=== PATIENT | female | born 1950 | race Caucasian/White ===

== ENCOUNTER 2017-02-15 12:06 | Outpatient (CLI) | payer BC ==
[~2017-02-15] VITALS: Ht 154.9 cm; Wt 56.8 kg
--- NOTE | ~2017-02-15 | HEMODYNAMI ---
PATIENT:ONEYDA GATES MEDICAL RECORD: [id number] : 54 LOCATION:D.CAT ADMISSION DATE: 02/15/17 Generatedon:02/15/201715:51 Patient name: ONEYDA GATES Patient #: [id number] SSN: : 1950 Date of study: 02/15/2017 Page: Of Hemodynamic Procedure Report Patient Data Patient Demographics Procedure consent was obtained First Name: ONEYDA Gender: Female Last Name: YAJAIRA : 1950 [facility] Initial: GUILLE Age: 66 year(s) Patient #: [id number] Race: Additional ID: [id number] Contact details Address: [place] State: [place] City: [place] Zip code: [address] Past Medical History Allergies Allergen Reaction Date Comments Reported Other allergy 06/29/2015 Sulfa Codeine 02/15/2017 Other allergy 02/15/2017 hydrocodone, linzess, zanaflex, methocaibomol Admission Admission Data Admission Date: 02/15/2017 Admission Time: 12:06 Admit Source: Other Lab Results Lab Result Date: 02/15/2017 Lab Result Time: 0:00 Biochemistry Name Units Result Min Max BUN mg/dl 9 --(*---)-- 7 18 Creatinine mg/dl 0.9 --(-*--)-- 0.6 1.3 Potassium mmol/l 3 *-(----)-- 3.5 5.1 CBC Name Units Result Min Max Hematocrit % 38.3 *-(----)-- 42 54 Hemoglobin g/dl 13.5 --(*---)-- 13.5 17.5 Procedure Procedure Types Cath Procedure Diagnostic Procedure [facility] w/Coronaries PCI Procedure Coronary Stent Initial Miscellaneous Procedures Moderate Sedation up to 30 minutes Procedure Description Procedure Date Procedure Date: 02/15/2017 Procedure Start Time: 15:19 Procedure End Time: 15:44 Procedure Staff Name Function Ronaldo Brooks MD Performing Physician Fabrice Hansen RT Scrub Camille Walker RN Nurse Sp Masters RT Monitor Procedure Data Cath Procedure Fluoroscopy Diagnostic fluoroscopy Total fluoroscopy Time: 3.3 time: 3.3 min min Diagnostic fluoroscopy Total fluoroscopy dose: 330 dose: 330 mGy mGy Contrast Material Contrast Material Type Amount (ml) Isovue 300 88 Entry Location Entry Primary Successful Side Size Upsize Upsize Entry Closure Succes sful Closure Location (Fr) 1 (Fr) 2 (Fr) Remarks Device Remarks Femoral Right 5 Fr 6 Fr Exoseal artery Short Diagnostic catheters Device Type Used For End Catheter Placement Cordis 5Fr JL 4.0 Left Coronary Catheter (MP) Angiography Cordis 5Fr 3DRC Catheter Right Coronary (MP) Angiography Cordis 5Fr Pigtail LV Angiography Catheter (MP) Diagnostic Infinity 6Fr JR 4.0 catheter Procedure Complications No complications Procedure Medications Medication Administration Route Dosage Oxygen NC 2 l/min Heparin Flush Bag added to field 2 bags (1000units/500ml NS) Lidocaine 2% added to field 20 Versed I.V. 1 mg Fentanyl I.V. 50 mcg Versed I.V. 1 mg Fentanyl I.V. 50 mcg Versed I.V. 1 mg Fentanyl I.V. 50 mcg Versed I.V. 1 mg Fentanyl I.V. 50 mcg Fentanyl I.V. 50 mcg Versed I.V. 1 mg Heparin Bolus I.V. 4000 units Hemodynamics Rest Heart Rate: 59 (bpm) Pressure Samples Time Site Value (mmHg) Purpose Heart Use Rate(bpm) 15:27 LV 144/14,27 EDP 59 Gradients Valve Time Site Site Mean SEP/DFP Peak To Heart Use 1 2 (mmHg) (sec/min) Peak Rate (mmHg) (bpm) Aortic 15:27 LV AO 59 Snapshots Pre Cath Intra NCS Post Cath Vital Signs Time Heart Resp SPO2 etCO2 RY3izfs NIBP (mmHg) Rhythm Pain Sedation Rate (ipm) (%) (mmHg) (mmHg) Status Level (bpm) 15:06:56 63 16 99 0 0 No Cuff NSR 0 (11) 10(A) , No pain 15:10:27 52 16 99 0 0 155/77(111) NSR 0 (11) 10(A) , No pain 15:14:37 56 14 100 0 0 140/72(100) NSR 0 (11) 10(A) , No pain 15:19:34 51 14 99 0 0 130/75(96) NSR 0 (11) 10(A) , No pain 15:23:44 59 16 98 0 0 131/79(91) NSR 0 (11) 10(A) , No pain 15:27:58 57 15 99 0 0 127/73(124) NSR 0 (11) 9(A) , No pain 15:32:10 64 19 100 0 0 125/74(98) NSR 0 (11) 9(A) , No pain 15:37:09 67 19 100 0 0 Measuring NSR 0 (11) 9(A) , No pain 15:37:21 65 16 100 0 0 132/74(95) NSR 0 (11) 10(A) , No pain 15:41:35 63 17 100 0 0 128/72(91) NSR 0 (11) 10(A) , No pain Medications Time Medication Route Dose Verified Delivered Reason Notes Effectiveness by by 15:06:24 Oxygen NC 2 Ronaldo Camille Per physician l/min St. Baljinder Walker RN, MD 15:06:31 Heparin Flush added 2 Ronaldo Ronaldo used for Bag to bags [facility] procedure (1000units/500ml field MD HEIN NS) 15:06:40 Lidocaine 2% added 20ml Ronaldo Ronaldo used for to vial [facility] procedure field MD HEIN 15:14:04 Versed I.V. 1 mg Ronaldo Camille for sedation St. Baljinder Walker RN, MD 15:14:17 Fentanyl I.V. 50 Ronaldo Camille for sedation mcg [facility] Baljinder Walker RN, MD 15:16:23 Versed I.V. 1 mg Ronaldo Camille for sedation St. Baljinder Walker RN, MD 15:16:33 Fentanyl I.V. 50 Ronaldo Camille for sedation mcg [facility]. Baljinder Walker RN, MD 15:18:42 Versed I.V. 1 mg Ronaldo Camille for sedation St. Baljinder Walker RN, MD 15:18:47 Fentanyl I.V. 50 Ronaldo Camille for sedation mcg [facility]. Baljinder Walker RN, MD 15:20:25 Fentanyl I.V. 50 Ronaldo Camille for sedation mcg [facility]. Baljinder Walker RN, MD 15:20:35 Versed I.V. 1 mg Ronaldo Camille for sedation St. Baljinder Walker RN, MD 15:22:27 Fentanyl I.V. 50 Ronaldo Obrien for sedation mcg [facility]. Baljinder Walker RN, MD 15:22:30 Versed I.V. 1 mg Ronaldo Robertoca for sedation St. Baljinder Walker RN, MD 15:30:08 Heparin Bolus I.V. 4000 Ronaldo Obrien for dose units St. Baljinder Walker RN anticoagulation verified MD with dr vogel Procedure Log Time Note 14:38:59 Informed consent obtained and on chart 14:39:05 Admit Source: Other 14:39:24 Diagnostic Cath status Elective 14:39:29 Camille Walker RN sent for patient. Start room use. 14:39:31 Time tracking: Regular hours 14:39:34 Plan of Care:Hemodynamics will remain stable., Cardiac rhythm will remain stable., Comfort level will be maintained., Respiratory function will remain adequate., Patient/ family verbilizes understanding of procedure., Procedure tolerated without complication., Recovers from procedure without complications.. 14:40:10 H&P Date Dictated: 02/13/2017 Within 30 days and on chart., H&P Addendum completed by physician on day of procedure. (MUST COMPLETE FOR ALL OUTPATIENTS). 14:49:38 Lab Result : Potassium 3 mmol/l 14:49:38 Lab Result : Creatinine 0.9 mg/dl 14:49:38 Lab Result : BUN 9 mg/dl 14:49:38 Lab Result : Hematocrit 38.3 % 14:49:38 Lab Result : Hemoglobin 13.5 g/dl 14:49:41 Lab results completed and on chart. 14:58:52 Patient received from Pre/Post Procedure Room to CCL 1 Alert and oriented. Tansferred to table in Supine position. 14:58:53 Warm blankets applied, and ruma hugger turned on for patient comfort. 14:58:53 Correct patient and procedure confirmed by team. 14:58:54 ECG and BP/O2 sat monitors applied to patient. 14:58:58 Pre-procedure instructions explained to patient. 14:58:58 Pre-op teaching completed and patient verbalized understanding. 14:59:00 Family in waiting room. 14:59:01 Patient NPO since Midnight. 15:06:07 Vital chart was started 15:06:24 Oxygen 2 l/min NC was administered by Camille Walker RN; Per physician; 15:06:31 Heparin Flush Bag (1000units/500ml NS) 2 bags added to field was administered by Ronaldo Brooks MD; used for procedure; 15:06:40 Lidocaine 2% 20ml vial added to field was administered by Ronaldo Brooks MD; used for procedure; 15:12:10 Patient allergic to Codeine 15:12:55 Patient allergic to Other allergyhydrocodone, linzess, zanaflex, methocaibomol 15:12:58 Is the patient allergic to Iodine/contrast media? No. 15:13:00 Was the patient premedicated? No 15:13:04 Is patient on blood thinner?Yes 15:13:07 ACC The patient was administered the following blood thiners within the last 24 hours: ACCPlavix 15:13:09 Patient diabetic? No. 15:13:10 ----Pre-sedation anethsthesia assessment.---- 15:13:12 Previous problem with sedation/anesthesia? No ? 15:13:14 Snore? Yes 15:13:17 Sleep apnea? No 15:13:18 Deviated septum? No 15:13:20 Opens mouth fully? Yes 15:13:21 Sticks out tongue? Yes 15:13:23 Airway obstruction? No ? 15:13:25 Dentures? No ? 15:13:28 Pre procedure: right dorsailis pedis pulse 1+ Palpable, but thready & weak; easily obliterated 15:13:31 Patient pain scale 0/10 ?. 15:13:45 IV patent on arrival in right antecubital with 0.9% NaCl at 10ml/hr. 15:13:50 Right groin area was prepped with chlora-prep and draped in sterile fashion 15:13:50 Alarms reviewed by RAlena N. 15:13:51 Sharps counted by scrub and verified by R.N. 15:13:52 --------ALL STOP TIME OUT------ 15:13:52 Final Timeout: patient, procedure, and site verified with staff and physician. All members of the team are in agreement. 15:13:55 Right groin site verified by team. 15:13:58 Physical assessment completed. ASA score P 2 - A patient with mild systemic disease as per Ronaldo Brooks MD. 15:14:01 Sedation plan: IV Moderate Sedation Versed, Fentanyl 15:14:04 Versed 1 mg I.V. was administered by Camille Walker RN; for sedation; 15:14:08 Use device set Femoral Dx 15:14:09 Acist Syringe opened to sterile field. 15:14:09 Bag Decanter opened to sterile field. 15:14:10 Medline Cath Pack opened to sterile field. 15:14:10 Terumo 5Fr Engelhard Sheath opened to sterile field. 15:14:10 St Bassem 260cm J .035 wire opened to sterile field. 15:14:11 Acist Hand Control opened to sterile field. 15:14:12 Acist Manifold opened to sterile field. 15:14:12 Diagnostic Infinity 5Fr Multipack catheter opened to sterile field. 15:14:13 Tegaderm 4 x 4 opened to sterile field. 15:14:17 Fentanyl 50 mcg I.V. was administered by Camille Walker RN; for sedation; 15:16:23 Versed 1 mg I.V. was administered by Camille Walker RN; for sedation; 15:16:33 Fentanyl 50 mcg I.V. was administered by Camille Walker RN; for sedation; 15:18:42 Versed 1 mg I.V. was administered by Camille Walker RN; for sedation; 15:18:47 Fentanyl 50 mcg I.V. was administered by Camille Walker RN; for sedation; 15:19:35 Zero performed for pressure channel P1 15:19:47 Procedure started. 15:19:47 Full Disclosure recording started 15:19:58 Local anesthetic to right femoral artery with Lidocaine 2% by Ronaldo Brooks MD.INITIAL ACCESS ONLY 15:20:05 A 5 Fr sheath was inserted into the Right Femoral artery 15:20:13 A Cordis 5Fr JL 4.0 Catheter () was advanced over the wire and used for Left Coronary Angiography. 15:20:17 Zero performed for pressure channel P1 15:20:25 Fentanyl 50 mcg I.V. was administered by Camille Walker RN; for sedation; 15:20:35 Versed 1 mg I.V. was administered by Camille Walker RN; for sedation; 15::34 LCA angiography performed. 15:: Fentanyl 50 mcg I.V. was administered by Camille Walker RN; for sedation; 15:: Versed 1 mg I.V. was administered by Camille Walker RN; for sedation; 15:24: Catheter removed. 15:24:15 A Cordis 5Fr 3DRC Catheter (MP) was advanced over the wire and used for Right Coronary Angiography. 15:: RCA angiography performed. 15:: Catheter removed. 15:: A Cordis 5Fr Pigtail Catheter (MP) was advanced over the wire and used for LV Angiography. 15:26:14 LV angiography performed. 15::40 LV gram done using ESTRADA 15:: LV hemodynamics recorded. 15:: EF : 55 % 15::42 Catheter removed. 15:28:26 Sheath upsized to a 6 Fr Short. 15:29:08 Sotelo Isaban 300cm 0.014 guide wire opened to sterile field. 15:29:08 i.Sec BasixCompak Inflation Kit opened to sterile field. 15:29:08 TerumPolantis 6Fr Engelhard Sheath opened to sterile field. 15:29:21 A Diagnostic Infinity 6Fr JR 4.0 catheter was advanced over the wire and used for . 15:30:08 Heparin Bolus 4000 units I.V. was administered by Camille Walker RN; for anticoagulation; dose verified with dr vogel 15:30:09 ACC PCI Site: mRCA has 80% stenosis. 15:30:12 ACC Pre-intervention MAY Flow is 3. 15:30:18 6 Fr JR 4 guide catheter was inserted over the wire 15:31:48 COUGAR wire advanced. 15:34:52 Inflation Number: 1 A SolarNOWtronic Integrity 3.0 X 12 stent was prepped and advanced across the Mid RCA. The stent was deployed at 14 FRANKY for 0:38 (min:sec). 15:35:12 Stent catheter was removed intact over wire. 15:35:12 Wire removed. 15:35:13 Guide catheter removed. 15:35:16 ACC Post-intervention MAY Flow is 3. 15:35:21 Contrast amount:Isovue 300 88ml. 15:35:29 Sheath removed intact; hemostasis achieved with Exoseal to the Right Femoral artery. 15:35:35 Procedure ended.(Physican Out) 15:36:26 Cordis 6Fr Exoseal opened to sterile field. 15:43:11 Fluoroscopy time 03.30 minutes. 15:43:14 Fluoroscopy dose: 330 mGy 15:43:14 Flurop Dose total: 330 15:43:16 Sharps counted by scrub and verified by R.N. 15:43:16 Insertion/operative site no bleeding no hematoma. 15:43:19 Post-op/insertion site Right Femoral artery dressed using a 4 x 4 and Tegaderm. 15:43:22 Post right femoral artery:stable 15:43:23 Post Procedure Pulses reassessed and unchanged 15:43:26 Post procedure rhythm: sinus rhythm 15:43:28 Post procedure instruction explained to patient.Patient verbalizes understanding. 15:43:55 Procedure type changed to Cath procedure, Diagnostic procedure, LHC, LHC w/Coronaries, PCI procedure, Coronary Stent Initial, Miscellaneous Procedures, Moderate Sedation up to 30 minutes 15:44:10 Procedure and supply charges have been captured, reviewed, submitted and are correct. 15:44:14 Procedure Complication : No complications 15:44:17 Vital chart was stopped 15:44:17 See physician's report for complete and final results. 15:44:24 Report given to Pre/Post Procedure Room. 15:44:29 Patient transfered to Pre/Post Procedure Room with Stretcher. 15:44:31 Procedure ended. 15:44:31 Full Disclosure recording stopped 15:44:34 End room use (Document Last) Intervention Summary Intervention Notes Time ActionType Lesion and Equipment Action# Pressure Duration Attributes Used 15:34:52 Place stent Mid RCA Medtronic 1 14 00:39 Integrity 3.0 X 12 stent Device Usage Item Name Manufacture Quantity Catalog Hospital Part Current Minimal Lot# / Number Charge Number Stock Stock Serial# Code Acist Acist 1 76180 512810 850647 161563 20 Syringe Medical Systems Inc Bag Microtek 1 2002S 550431 04115 165345 5 DecSuros Surgical [employer] Inc. Medline Cardinal 1 [id number] 440505 01989 859705 5 Cath Pack Health Terumo 5Fr Terumo 1 VLC349 859121 250514 118971 [address] Bas[address] St Bassem 1 933876 702944 655175 427602 30 260cm J .035 wire Acist Hand Acist 1 45158 188251 454091 587929 5 Control Medical Systems Inc Acist Acist 1 33983 104541 200466 659678 5 Manifold Medical Systems Inc Diagnostic Cardinal 1 [id number] 571019 75841 671679 30 Infinity Health 5Fr Multipack catheter Tegaderm 4 3M 1 1626W 342192 884955 105911 5 x 4 Cordis 5Fr Cardinal 1 038878 5 JL 4.0 Health Catheter (MP) Cordis 5Fr Cardinal 1 608603 5 3DRC Health Catheter (MP) Cordis 5Fr Cardinal 1 072032 5 Pigtail Health Catheter (MP) Sotelo Sotelo 1 [id number] 580422 307129 237084 1 Isaban Vascular 300cm 0.014 guide wire Merit Merit 1 RE3138 262510 805219 149551 15 Incentive Logic Medical Inflation Kit Terumo 6Fr Terumo 1 MSG279 632160 519901 314619 40 Engelhard Sheath Diagnostic Cardinal 1 [id number] 576496 587589 2434782 5 Infinity Health 6Fr JR 4.0 catheter Medtronic Medtronic 1 [id number] 484658 271657 8 [id number] Integrity 3.0 X 12 stent Cordis 6Fr Cardinal 1 EX600 496092 366109 978795 10 [facility] BioAnalytical Systems Signature Audit [place] Stage Time Signature Unsigned Intra-Procedure 02/15/2017 Sp Masters 3:51:32 PM RT(R) Signatures Monitor : Sp Masters RT Signature : Date : Time : [facility] [address] [place] [address]
[~2017-02-15 12:06] MED LIST: AMBIEN10 MG PO; ASPIRIN325 MG PO; FERRETTS324 MG PO; IBUPROFEN800 MG; IBUPROFEN800 MG PO; K-DUR20 MEQ PO; LEVOTHYROXINE75 MCG PO; LOVAZA1 G PO; NITROMIST8.5 GM SL; OXYCODONE HCL5 MG PO; OXYCONTIN15 MG PO; PHENERGAN25 M1 PO; PLAVIX75 MG PO; PROTONIX40 MG PO; ROXICODONE15 MG; SOMA350 MG PO; SYNTHROID100 MCG; SYNTHROID50 MCG PO; VALIUM10 MG PO
[2017-02-15] MEDS ORDERED: MOVANTIK25 MG PO (13:02)
[2017-02-15] MEDS ORDERED: CYCLOBENZAPRINE10 MG PO (13:02)
[2017-02-15] MEDS ORDERED: NASONEX NASAL S17 GM NS (13:03)
[2017-02-15 13:10] VITALS: BP 110/60; Ht 154.9 cm; Wt 56.8 kg
[2017-02-15 13:20] LABS: BASOPHILS 0.3 % (0-2); EOSINOPHILS 1.6 % (0-7); HEMATOCRIT 38.3 % (36.0-48.0); HEMOGLOBIN 13.5 g/dL (12-16); LYMPHOCYTES 38.5 % (15-50); MCH 30.3 pg (26.0-34.0); MCHC 35.2 g/dL (31.0-37.0); MCV 86.1 fL (80.0-100.0); MEAN PLATELET VOLUME 9.7 fL (7.4-10.4); MONOCYTES 4.8 % (2-11); NEUTROPHILS 54.8 % (40-80); PLATELET COUNT 170 10x3/uL (130-400); RBC 4.45 10x6/uL (4.00-5.40); RDW 12.7 % (11.5-14.5); WBC 3.1 10x3/uL (4.8-10.8)
[2017-02-15 13:44] LABS: ANION GAP 11.9 mmol/L (8-16); CALCIUM 9.2 mg/dL (8.5-10.1); CARBON DIOXIDE 27.1 mmol/L (21.0-32.0); CREATININE - SERUM 0.9 mg/dL (0.6-1.3)
--- NOTE | 2017-02-15 16:15 | NUR ---
RIGHT GROIN WITH FEMSTOP IN PLACE, NO BLEEDING NOTED. FAMILY AT SIDE
--- NOTE | 2017-02-15 16:45 | NUR ---
NO CHANGES AT THIS TIME
--- NOTE | 2017-02-15 19:45 | NUR ---
IV D'C WITH CATH TIP INTACT, WRITTEN AND VERBAL INSTRUCTIONS GIVEN TO PT AND , VERBAL UNDERSTANDING NOTED. DENIES FURTHUR NEEDS. D'C HOME WITH
--- NOTE | 2017-02-16 12:52 | OP ---
PATIENT NAME: ONEYDA GATES MEDICAL RECORD: [id number] :54 LOCATION:D.CAT ADMISSION DATE: SURGEON: ANYI LIU MD DATE OF OPERATION: 02/15/2017 PROCEDURES: Left heart catheterization, selective coronary angiography, right femoral approach. CATHETERS: A 5-Moldovan sheath, 5/4 left and right Andre, 5/4 pig. The procedure was well tolerated and the patient returned to the schaefer. Sheath removed. ExoSeal device was placed. FINDINGS: Left ventriculography in 30-degree ESTRADA view: Normal wall motion, normal systolic function. CORONARY ANATOMY: Left main: Left main is free of disease. LAD: LAD in the area of previous stenting is widely patent. There is no evidence of restenosis. No progression of [place] disease. CIRCUMFLEX: Circumflex is free of disease. RIGHT CORONARY ARTERY: Despite ____ stenting, this has one area of discrete stenosis of about 80%-90%. IMPRESSION AND PLAN: Intervention of this vessel momentarily. DESCRIPTION OF THE PROCEDURE: A 5-Moldovan sheath was changed for a 6-Moldovan sheath. A JR4 guiding catheter provided excellent guide catheter support, followed by a 300 cm Luxora XT wire was placed across the site occluded right down this portion of vessel followed by a 3.0 x 12 mm Integrity nondrug-eluting stent was inflated up to 14 atmospheres for 45 seconds. Final injection shows excellent resolution of an 80% to 90% stenosis, no significant residual. MAY flow was 3 throughout the procedure. Integrilin was used during the case. Sheath closed with an ExoSeal device. TRANSINT:[id number] Voice Confirmation ID: [id number] DOCUMENT ID: [id number] ANYI LIU MD at 1252 CC: [id number] DICTATION DATE: 02/15/17 1551 [employer]: 02/16/17 0134 DEP CLI 02/15/17 [address] [place] [address]
== END 2017-02-15 20:00 | disposition home or self-care (01) ==
LOC: D.CATH 12:06
PROVIDERS: Internal Medicine Interventional Cardiology
DX: I25.10 Atherosclerotic heart disease of native coronary artery without angina pectoris (principal); Z95.5 Presence of coronary angioplasty implant and graft

== ENCOUNTER 2018-06-27 17:26 | Emergency (ER) | payer MEDICARE ==
[~2018-06-27] VITALS: Ht 154.9 cm; Wt 59.1 kg
[~2018-06-27 17:26] MED LIST changes: +CYCLOBENZAPRINE10 MG PO; +MOVANTIK25 MG PO; +NASONEX NASAL S17 GM NS
[2018-06-27 17:27] VITALS: Ht 154.9 cm; Wt 59.1 kg
[2018-06-27 17:58] LABS: BASOPHILS 0.3 % (0-2); EOSINOPHILS 3.4 % (0-7); HEMATOCRIT 32.6 % (36.0-48.0); HEMOGLOBIN 11.3 g/dL (12-16); LYMPHOCYTES 29.3 % (15-50); MCH 29.7 pg (26.0-34.0); MCHC 34.7 g/dL (31.0-37.0); MCV 85.8 fL (80.0-100.0); MEAN PLATELET VOLUME 8.7 fL (7.4-10.4); MONOCYTES 5.2 % (2-11); NEUTROPHILS 61.8 % (40-80); PLATELET COUNT 177 10x3/uL (130-400); RDW 12.9 % (11.5-14.5); WBC 3.5 10x3/uL (4.8-10.8)
[2018-06-27 18:11] LABS: APTT 27.7 SECONDS (22.8-39.4); INR 0.91 (0.85-1.17); PROTIME 11.9 SECONDS (11.6-15.0)
[2018-06-27 18:15] LABS: ALBUMIN 3.2 g/dL (3.4-5.0); ANION GAP 9.1 mmol/L (8-16); CALCIUM 8.3 mg/dL (8.5-10.1); CARBON DIOXIDE 27.6 mmol/L (21.0-32.0); CREATININE - SERUM 0.9 mg/dL (0.6-1.3); POTASSIUM - SERUM 4.7 mmol/L (3.5-5.1); PROTEIN - SERUM 6.3 g/dL (6.4-8.2)
[2018-06-27 18:16] LABS: BILIRUBIN - TOTAL 0.07 mg/dL (0.2-1.3)
[2018-06-27] MEDS ORDERED: ULTRAM50 MG PO (20:21)
[2018-06-27 20:32] VITALS: BP 112/78
== END 2018-06-27 20:32 | disposition home or self-care (01) ==
LOC: D.ER 17:26
PROVIDERS: Family Medicine
DX: S50.12XA Contusion of left forearm, initial encounter (principal); W10.9XXA Fall (on) (from) unspecified stairs and steps, initial encounter; Y93.89 Activity, other specified; Y92.89 Other specified places as the place of occurrence of the external cause; M54.2 Cervicalgia; I10 Essential (primary) hypertension; Z85.3 Personal history of malignant neoplasm of breast; Z85.828 Personal history of other malignant neoplasm of skin; F17.200 Nicotine dependence, unspecified, uncomplicated

== ENCOUNTER 2018-10-04 11:44 | Outpatient (CLI) | payer MEDICARE, BC ==
[~2018-10-04] VITALS: Ht 154.9 cm; Wt 54.5 kg
[~2018-10-04 11:44] MED LIST changes: +ULTRAM50 MG PO
[2018-10-04 12:45] VITALS: Ht 154.9 cm; Wt 54.5 kg
== END 2018-10-04 12:55 | disposition home or self-care (01) ==
LOC: D.OPS 11:44
DX: M81.0 Age-related osteoporosis without current pathological fracture (principal); Z01.812 Encounter for preprocedural laboratory examination

== ENCOUNTER 2019-01-31 11:08 | Outpatient (CLI) | payer MEDICARE, BC ==
[~2019-01-31] VITALS: Ht 154.9 cm; Wt 56.8 kg
--- NOTE | ~2019-01-31 | HEMODYNAMI ---
PATIENT:ONEYDA GATES MEDICAL RECORD: [id number] : 54 LOCATION:D.CAT ADMISSION DATE: 01/31/19 Generatedon:01/31/201915:04 Patient name: ONEYDA GATES Patient #: [id number] SSN: : 1950 Date of study: 01/31/2019 Page: Of Hemodynamic Procedure Report Patient Data Patient Demographics Procedure consent was obtained First Name: ONEYDA Gender: Female Last Name: YAJAIRA : 1950 [facility] Initial: GUILLE Age: 68 year(s) Patient #: [id number] Race: Additional ID: [id number] Contact details Address: [address] State: [place] City: [place] Zip code: [address] Past Medical History Allergies Allergen Reaction Date Comments Reported Other allergy 06/29/2015 Sulfa Codeine 02/15/2017 Other allergy 02/15/2017 hydrocodone, linzess, zanaflex, methocaibomol Other allergy 01/31/2019 Sulfa Admission Admission Data Admission Date: 01/31/2019 Admission Time: 11:08 Height (in.): 61 BSA: 1.57 (m2) Height (cm.): 154.94 BMI: 24.37 (kg/m2) Weight (lbs.): 129 Weight (kg.): 58.51 Lab Results Lab Result Date: 01/31/2019 Lab Result Time: 0:00 Biochemistry Name Units Result Min Max BUN mg/dl 29 --(----)-* 7 18 Creatinine mg/dl 1.4 --(----)*- 0.6 1.3 CBC Name Units Result Min Max Hemoglobin g/dl 11.2 *-(----)-- 13.5 17.5 Procedure Procedure Types Cath Procedure Diagnostic Procedure LHC LHC w/Coronaries PCI Procedure Coronary Stent Coronary Stent Initial Procedure Description Procedure Date Procedure Date: 01/31/2019 Procedure Start Time: 14:25 Procedure End Time: 14:44 Procedure Staff Name Function Jaswant Cohen RN Nurse Ema Manzano RN Nurse Ronaldo Vora MD Performing Physician Fabrice Hansen RT Scrub Isa Moraes RT Monitor Andrea Otoole RN Nurse Procedure Data Cath Procedure Fluoroscopy Diagnostic fluoroscopy Total fluoroscopy Time: 2.7 time: 2.7 min min Diagnostic fluoroscopy Total fluoroscopy dose: 458 dose: 458 mGy mGy Contrast Material Contrast Material Type Amount (ml) Isovue 300 95 Entry Location Entry Primary Successful Side Size Upsize Upsize Entry Closure Succes sful Closure Location (Fr) 1 (Fr) 2 (Fr) Remarks Device Remarks Femoral Right 5 Fr 6 Fr artery Short Estimated blood loss: 10 ml Diagnostic catheters Device Type Used For End Catheter Placement MULTIPACK JL 4.0 5Fr Procedure catheter MULTIPACK 3DRC 5Fr Procedure catheter MULTIPACK Pigtail 5 Fr Procedure catheter Procedure Complications No complications Procedure Medications Medication Administration Route Dosage 0.9% NaCl I.V. 100 ml/hr Oxygen etCO2 Nasal cannula 2 l/min Versed I.V. 2 mg Fentanyl I.V. 100 mcg Heparin Flush Bag added to field 2 bags (1000units/500ml NS) Lidocaine 2% added to field 20 Versed I.V. 1 mg Heparin Bolus I.V. 5000 units Versed I.V. 1 mg Fentanyl I.V. 50 mcg Nitroglycerin SL S.L. 0.4 mg Fentanyl I.V. 50 mcg Lopressor I.V. 5 mg Hemodynamics Rest BSA: 1.57 (m2) HGB: 11.2 (g/dl) O2 Consumption: Estimated: 143.73 (ml/min) O2 Co nsumption indexed: Estimated:91.55 (ml/min/m) Heart Rate: 66 (bpm) Pressure Samples Time Site Value (mmHg) Purpose Heart Use Rate(bpm) 14:30 LV 186/-4,18 Snapshot 66 Gradients Valve Time Site Site Mean SEP/DFP Peak To Heart Use 1 2 (mmHg) (sec/min) Peak Rate (mmHg) (bpm) Aortic 14:30 LV AO 64 Snapshots Pre Cath Intra NCS Post Cath Vital Signs Time Heart Resp SPO2 etCO2 NIBP (mmHg) Rhythm Pain Status Sedation Rate (ipm) (%) (mmHg) Level (bpm) 14:24:18 58 17 99 36.5 140/79(103) NSR 0 (11) , No 10(A) pain 14:29:33 68 39 100 36.5 168/90(117) NSR 0 (11) , No 10(A) pain 14:33:53 66 14 100 40.3 150/77(97) NSR 0 (11) , No 10(A) pain 14:38:09 71 15 99 37.3 147/76(105) NSR 0 (11) , No 10(A) pain 14:42:31 78 11 99 38.8 157/83(118) NSR 0 (11) , No 10(A) pain 15:02:07 58 12 99 35.1 140/77(96) NSR 5 (11) , 10(A) Very distressing Medications Time Medication Route Dose Verified Delivered Reason Notes Effectiveness by by 14:21:31 0.9% NaCl I.V. 100 Andrea Andrea Per physician ml/hr Xiang Otoole RN RN 14:21:40 Oxygen etCO2 2 Andrea Andrea for low 02 sats Nasal l/min Xiang Otoole cannula RN RN 14:22:34 Versed I.V. 2 mg Andrea Andrea for sedation Xiang Otoole RN RN 14:22:41 Fentanyl I.V. 100 Andrea Andrea for sedation mcg Xiang Otoole RN RN 14:22:52 Heparin Flush added 2 Andrea Andrea used for Bag to bags Lornoemi Otoole procedure (1000units/500ml [facility] RN RN NS) 14:23:01 Lidocaine 2% added 20ml Andrea Andrea for local to vial Xiang Otoole anesthetic RN RN 14:24:29 Versed I.V. 1 mg Andrea Andrea for sedation Xiang Otoole RN RN 14:33:14 Heparin Bolus I.V. 5000 Andrea Andrea for units Lorigan Xiang anticoagulation RN RN 14:33:25 Versed I.V. 1 mg Andrea Andrea for sedation Xiang Otoole RN RN 14:43:30 Fentanyl I.V. 50 Andrea Andrea for back pain mcg Xiang Otoole RN RN 14:59:00 Nitroglycerin SL S.L. 0.4 Andrea Andrea for mg Lorigan Lorigan vasodilation RN RN 14:59:21 Fentanyl I.V. 50 Andrea Andrea for chest pain mcg Xiang Otoole RN RN 14:59:41 Lopressor I.V. 5 mg Andrea Andrea for Lorigan Lorigan hypertension RN head neck surgeon Log Time Note 13:30:54 Patient Height : 61 inches 13:30:59 Patient Weight : 129 lbs 13:31:23 Lab Result : Hemoglobin 11.2 g/dl 13:31:23 Lab Result : Creatinine 1.4 mg/dl 13:31:23 Lab Result : BUN 29 mg/dl 13:32:10 Diagnostic Cath status Elective 13:32:14 Time tracking: Regular hours (M-F 7:00 - 5:00) 13:32:19 Plan of Care:Hemodynamics will remain stable., Cardiac rhythm will remain stable., Comfort level will be maintained., Respiratory function will remain adequate., Patient/ family verbilizes understanding of procedure., Procedure tolerated without complication., Recovers from procedure without complications.. 13:32:48 H&P Date Dictated: 01/30/2019 Within 30 days and on chart., H&P Addendum completed by physician on day of procedure. (MUST COMPLETE FOR ALL OUTPATIENTS). 13:32:54 Family in waiting room. 13:33:15 Patient allergic to Other allergySulfa 13:33:21 Is patient on blood thinner?Yes 13:59:22 Isa BENÍTEZ(R) sent for patient. Start room use. 14:04:17 Patient received from Pre/Post Procedure Room to CCL 2 Alert and oriented. Tansferred to table in Supine position. 14:04:18 Warm blankets applied, and ruma hugger turned on for patient comfort. 14:04:19 Correct patient and procedure confirmed by team. 14:04:20 Signed procedure consent form obtained from patient. 14:04:21 ECG and BP/O2 sat monitors applied to patient. 14:04:22 Pre-op teaching completed and patient verbalized understanding. 14:04:22 Pre-procedure instructions explained to patient. 14:04:25 Patient NPO since Breakfast. 14:04:33 Is the patient allergic to Iodine/contrast media? No. 14:16:33 Is patient on blood thinner?Yes 14:16:37 ACC The patient was administered the following blood thiners within the last 24 hours: ACCPlavix 14:16:39 Patient diabetic? No. 14:16:44 Snore? No 14:16:46 Sleep apnea? No 14:16:56 Pre procedure: right dorsailis pedis pulse 1+ Palpable, but thready & weak; easily obliterated 14:17:00 Pre procedure: left dorsailis pedis pulse 2+ Normal; easily identifiable; not easily obliterated 14:17:05 Patient pain scale 2/10 ?. 14:17:13 IV patent on arrival in right forearm with 0.9% NaCl at O. 14:17:36 Lab results completed and on chart. 14:17:40 Right groin area was prepped with chlora-prep and draped in sterile fashion 14:17:41 Sharps counted by scrub and verified by R.N. 14:17:41 Alarms reviewed by R. N. 14:17:42 Physician paged 14:19:08 Physician arrived 14:19:13 --------ALL STOP TIME OUT------ 14:19:14 Final Timeout: patient, procedure, and site verified with staff and physician. All members of the team are in agreement. 14:19:29 Right groin site verified by team. 14:19:41 Maximum allowable Isovue 300 dose 300ml. Physician notified. (300ml for normal creatinines. For patients with creatinine of 1.7 or higher multiply weight(kg) x 5 divided by creatinine.) 14:19:56 Fire Safety Assessment: A--An alcohol-based skin anteseptic being used preoperatively., C--Open oxygen or nitrous oxide is being used., D--An ESU, laser, or fiber-optic light is being used. 14:19:59 Physical assessment completed. ASA score P 2 - A patient with mild systemic disease as per Ronaldo Vora MD. 14:20:03 Sedation plan: IV Moderate Sedation Medication:Versed, Fentanyl 14:21:31 0.9% NaCl 100 ml/hr I.V. was administered by Andrea Otoole RN; Per physician; 14:21:40 Oxygen 2 l/min etCO2 Nasal cannula was administered by Andrea Otoole RN; for low 02 sats; 14:22:34 Versed 2 mg I.V. was administered by Andrea Otoole RN; for sedation; 14::41 Fentanyl 100 mcg I.V. was administered by Andrea Otoole RN; for sedation; 14:22:50 Use device set Femoral Dx 14:22:52 Heparin Flush Bag (1000units/500ml NS) 2 bags added to field was administered by Andrea Otoole RN; used for procedure; 14::54 Full Disclosure recording started 14::54 Procedure started. 14:23:01 Lidocaine 2% 20ml vial added to field was administered by Andrea Otoole RN; for local anesthetic; 14:23:06 Vital chart was started 14:24:29 Versed 1 mg I.V. was administered by Andrea Otoole RN; for sedation; 14:25:14 Local anesthetic to right femoral artery with Lidocaine 2% by Ronaldo Vora MD.INITIAL ACCESS ONLY 14:25:16 Medline Cath Pack ([id number]) opened to sterile field. 14:25:16 Bag Decanter (2002S) opened to sterile field. 14:25:16 ACIST Syringe (48680) opened to sterile field. 14:25:17 DIAGNOSTIC WIRE .035 260cm J wire (097518) opened to sterile field. 14:25:18 ACIST Hand Control (86673) opened to sterile field. 14:25:19 DIAGNOSTIC Multipack 5Fr catheter set (AS3743) opened to sterile field. 14:25:19 ACIST Manifold (23810) opened to sterile field. 14:25:21 SHEATH 5FR [place] (WUW767) opened to sterile field. 14:25:43 A 5 Fr sheath was inserted into the Right Femoral artery 14:25:59 A MULTIPACK JL 4.0 5Fr catheter was advanced over the wire and used for Procedure. 14:26:26 LCA angiography performed. 14:29:21 Catheter removed. 14:29:28 A MULTIPACK 3DRC 5Fr catheter was advanced over the wire and used for Procedure. 14:29:33 RCA angiography performed. 14:29:35 Catheter removed. 14:29:44 A MULTIPACK Pigtail 5 Fr catheter was advanced over the wire and used for Procedure. 14:30:51 Catheter removed. 14:31:03 EF : 55 % 14:31:33 INFLATOR Merit BasixCompak (WX8587) opened to sterile field. 14:31:33 GUIDE 6FR XBLAD 3.5 catheter ([id number]) opened to sterile field. 14:32:19 SHEATH 6FR [place] (RFH347) opened to sterile field. 14:32:20 WHISPER 300cm guide wire ([id number]) opened to sterile field. 14:32:36 Sheath upsized to a 6 Fr Short. 14:32:46 6 Fr XBLAD3.5 guide catheter was inserted over the wire 14:33:14 Heparin Bolus 5000 units I.V. was administered by Andrea Otoole RN; for anticoagulation; 14:33:25 Versed 1 mg I.V. was administered by Andrea Otoole RN; for sedation; 14:33:38 Whisper wire advanced. 14:33:40 Wire advanced across lesion. 14:39:17 Place stent Inflation Number: 1 A COBRA RX 3.0 X 18 was prepped and advanced across the Prox LAD. The stent was deployed at 14 FRANKY for 0:22 (min:sec). 14:39:48 EXOSEAL 6Fr (EX600) opened to sterile field. 14:40:25 Wire removed. 14:40:26 Guide catheter removed. 14:40:31 Procedure ended.(Physican Out) 14:40:39 Fluoroscopy time 02.70 minutes. 14:40:48 Fluoroscopy dose: 458 mGy 14:40:48 Flurop Dose total: 458 14:40:51 Contrast amount:Isovue 300 95ml. 14:40:53 Sharps counted by scrub and verified by R.N. 14:40:57 Insertion/operative site no bleeding no hematoma. 14:43:27 Post-op/insertion site Right Femoral artery dressed using a 4 x 4 and Tegaderm. 14:43:29 Post Procedure Pulses reassessed and unchanged 14:43:30 Fentanyl 50 mcg I.V. was administered by Andrea Otoole RN; for back pain; 14:43:39 Post-procedure physical assessment completed. ASA score P 2 - A patient with mild systemic disease as per Ronaldo Vora MD. 14:43:43 Post procedure rhythm: unchanged. 14:43:54 Estimated blood loss: 10 ml 14:43:56 Post procedure instruction explained to patient.Patient verbalizes understanding. 14:44:18 Procedure type changed to Cath procedure, Diagnostic procedure, LHC, LHC w/Coronaries, PCI procedure, Coronary Stent, Coronary Stent Initial 14:44:19 Procedure and supply charges have been captured, reviewed, submitted and are correct. 14:44:41 Procedure Complication : No complications 14:44:44 See physician's report for complete and final results. 14:44:44 Vital chart was stopped 14:44:46 Report given to Pre/Post Procedure Room. 14:44:49 Patient transfered to Pre/Post Procedure Room with Stretcher. 14:44:51 Full Disclosure recording stopped 14:44:51 Procedure ended. 14:44:55 End room use (Document Last) 14:59:00 Nitroglycerin SL 0.4 mg S.L. was administered by Andrea Otoole RN; for vasodilation; 14:59:21 Fentanyl 50 mcg I.V. was administered by Andrea Otoole RN; for chest pain; 14:59:23 FEMSTOP Gold ([id number]) opened to sterile field. 14:59:29 Femstop placed over the right femoral artery at 159 mmHg. Hemostasis achieved. 14:59:41 Lopressor 5 mg I.V. was administered by Andrea Otoole RN; for hypertension; Intervention Summary Intervention Notes Time ActionType Lesion and Equipment Action# Pressure Duration Attributes Used 14:39:[address] stent Prox LAD COBRA RX 1 14 00:22 3.0 X 18 Device Usage Item Name Manufacture Quantity Catalog Hospital Part Current Minimal Lot# / Number Charge Number Stock Stock Serial# Code ACIST Syringe Acist 1 32162 125149 795432 810038 20 (09813) Medical Systems Inc Bag Decanter Microtek 1 776192 24347 612099 5 () Medical Inc. Medline Cath Medline 1 [id number] 638701 07338 312000 5 Pack ([id number]) DIAGNOSTIC St Bassem 1 818309 869689 503637 594595 30 WIRE .035 260cm J wire (604019) ACIST Hand Acist 1 24981 715134 246456 744397 5 Control Medical (60663) Systems Inc ACIST Manifold Acist 1 57856 830049 708229 820203 5 (40392) Medical Systems Inc DIAGNOSTIC Cardinal 1 KE1744 372803 07625 784670 30 Multipack 5Fr Health catheter set (HN7126) SHEATH 5FR Terumo 1 VDI582 245169 912930 674509 5 [place] (LLZ472) MULTIPACK JL Cardinal 1 066556 5 4.0 5Fr Health catheter MULTIPACK 3DRC Cardinal 1 787584 5 5Fr catheter Health MULTIPACK Cardinal 1 659525 5 Pigtail 5 Fr Health catheter GUIDE 6FR Cardinal 1 [id number] 520455 794673 272763 10 XBLAD 3.5 Health catheter ([id number]) INFLATOR Merit Merit 1 WO2771 889835 768998 061526 15 [facility] (QB5736) SHEATH 6FR Terumo 1 OWJ122 267873 382082 171123 40 [place] (BZS519) WHISPER 300cm Sotelo 1 [id number] 816505 009841 793353 5 guide wire Vascular ([id number]) COBRA RX 3.0 X Celonova 1 416769 [id number] 19172508 6 [id number] 18 stent Biosciences ([id number]) EXOSEAL 6Fr Cardinal 1 EX600 622494 930640 480121 10 (EX600) Health FEMSTOP Gold St Bassem 1 X36036 597337 067342 795801 5 ([id number]) Signature Audit [place] Stage Time Signature Unsigned Intra-Procedure 01/31/2019 Isa Moraes RT(R) 2:46:45 PM RT(R) 01/31/2019 2:56:33 PM Intra-Procedure 01/31/2019 Isa Moraes 3:03:55 PM RT(R) Signatures Monitor : Isa Moraes Signature : RT Date : Time : [facility] [address] [place] [address]
[2019-01-31] MEDS ORDERED: STERAPRED DS 1010 MG PO (11:31)
[2019-01-31] MEDS ORDERED: ATARAX 25 MG TA25 MG PO (11:31)
[2019-01-31 11:43] VITALS: BP 143/72; Ht 154.9 cm; Wt 56.8 kg
[2019-01-31 11:57] LABS: BASOPHILS 0 % (0-2); EOSINOPHILS 0.7 % (0-7); HEMATOCRIT 33.7 % (36.0-48.0); HEMOGLOBIN 11.2 g/dL (12-16); IMMATURE GRANULOCYTES 0.7 % (0-5); LYMPHOCYTES 9.6 % (15-50); MCH 30.3 pg (26.0-34.0); MCHC 33.2 g/dL (31.0-37.0); MCV 91.1 fL (80.0-100.0); MEAN PLATELET VOLUME 9.3 fL (7.4-10.4); MONOCYTES 4.2 % (2-11); NEUTROPHILS 84.8 % (40-80); PLATELET COUNT 198 10x3/uL (130-400); RDW 12.7 % (11.5-14.5); WBC 6.1 10x3/uL (4.8-10.8)
[2019-01-31 12:07] LABS: ANION GAP 11.5 mmol/L (8-16); CALCIUM 8.8 mg/dL (8.5-10.1); CARBON DIOXIDE 23.2 mmol/L (21.0-32.0); CREATININE - SERUM 1.4 mg/dL (0.6-1.3); POTASSIUM - SERUM 3.7 mmol/L (3.5-5.1)
--- NOTE | 2019-01-31 15:25 | NUR ---
2L NC, NO RESP DISTRESS. RIGHT GROIN 6F EXOSEAL CDI, NO BLEEDING NOTED. FEMSTOP IN PLACE @ 124. NO C/O PAIN OR NAUSEA. VSS. FAMILY AT BEDSIDE, CALL LIGHT WITHIN REACH.
--- NOTE | 2019-01-31 15:54 | NUR ---
C/O BACK AND LEG PAIN. OXYCODONE GIVEN PER ORDERS AND PT REQUEST. SEE MAR. RIGHT GROIN 6F EXOSEAL CDI, NO BLEEDING NOTED. FEMSTOP IN PLACE @ 134. VSS. WILL CONTINUE TO MONITOR.
--- NOTE | 2019-01-31 16:15 | NUR ---
FEMSTOP PRESSURE DECREASED BY 25 WITH NO BLEEDING NOTED. VOIDED 600CC INTO BEDPAN. NO C/O AT THIS TIME. VSS. CALL LIGHT WITHIN REACH.
--- NOTE | 2019-01-31 16:30 | NUR ---
FEMSTOP PRESSURE DECREASED BY 25 WITH NO BLEEDING NOTED. VSS.
--- NOTE | 2019-01-31 16:50 | NUR ---
FEMSTOP PRESSURE DCREASED BY 25 WITH NO BLEEDING NOTED. VSS.
--- NOTE | 2019-01-31 17:10 | NUR ---
REMAINING FEMSTOP PRESSURE REMOVED AND FEMSTOP REMOVED FROM SITE WITH NO BLEEDING NOTED. DRESSING PLACED TO SITE. NO C/O PAIN OR NAUSEA. VSS. DENIES ANY NEEDS. WILL CONTINUE TO MONITOR CLOSELY.
--- NOTE | 2019-01-31 18:00 | NUR ---
HOB ELEVATED 30 DEGREES. RIGHT GROIN 6F EXOSEAL CDI, NO BLEEDING OR HEMATOMA NOTED. SIPPING ON DRINK AND EATING SANDWICH WITH NO C/O NAUSEA. VSS. WILL CONTINUE TO MONITOR CLOSELY.
--- NOTE | 2019-01-31 18:43 | NUR ---
1831 ENTERED ROOM, PT SITTING UP IN BED, ALERT AND PUTTING ON BRA/SHIRT. . PT HAS REMOVED ALL MONITORS, EKG LEADS, BP CUFF, STATES SHE WANTS GET DRESSED. IV SITE BLEEDING, CATH PARTIALLY OUT. IV DC'D WITH CATH INTACT AND COTTON BALL/TAPE APPLIED. PT DENIES ANY C/O PAIN OR NAUSEA. DRESSING IS CDI TO RIGHT GROIN, NO HEMATOMA NOTED. PEDAL PULSES PALPABLE. INSTRUCTED PT I WILL HELP HER DRESS FOR DISCHARGE IN JUST A FEW MINUTES, HER DISCHARGE TIME IS 7 PM, PT AGREEABLE TO THIS, STATES "I JUST THOUGHT I WOULD GET A HEAD START AND MAYBE I COULD GO HOME EARLY"
--- NOTE | 2019-01-31 19:33 | NUR ---
1850 DC INSTRUCTIONS HAVE BEEN REVIEWED WITH PT WHO VERBZLIZES UNDERSTANDING. ASSISTED PT WITH DRESSING FOR DISCHARGE TO HOME. DRESSING TO RIGHT GROIN IS CDI, PEDAL PULSES PALPABLE. PT ESCORTED TO THE BATHROOM AND VOIDED QS. 1899 PT ESCORTED TO PRIVATE AUTO VIA WC BY NURSE WITH FRIEND DRIVING HER HOME. PT IS ALERT AND DENIES ANY C/O AT TIME OF DC.
--- NOTE | 2019-02-05 12:26 | OP ---
PATIENT NAME: ONEYDA GATES MEDICAL RECORD: [id number] :54 LOCATION:D.CAT ADMISSION DATE: SURGEON: ANYI LIU MD DATE OF OPERATION: 01/31/2019 PROCEDURE: Left heart catheterization, selective coronary angiography, right femoral artery approach. CATHETERS: A 5-Welsh sheath, 5/4 left and right Andre, 5/4 pig. The procedure was well tolerated. The patient was returned to schaefer. Sheath was removed. ExoSeal device was placed. FINDINGS: Left ventriculography in 30-degree ESTRADA view: Normal wall motion. Normal systolic function. CORONARY ANATOMY: LEFT MAIN: Left main is free of disease. LAD: Proximal to previously placed stent, it shows about 80% stenosis. CIRCUMFLEX: Circumflex is free of disease. RIGHT CORONARY ARTERY: Throughout the entire area, stenting is widely patent with no evidence of restenosis. No progression of [place] disease. IMPRESSION: Intervention to LAD momentarily. DESCRIPTION OF PROCEDURE: A 5-Welsh sheath was exchanged for a 6-Welsh sheath. XB LAD guiding catheter provided excellent guide catheter support followed by 300-cm Whisper wire placed across the tightly occluded LAD down this portion of the vessel. Stent deployed was 3.0 x 15-mm Cobra stent up to 14 atmospheres. Final angiography shows excellent resolution of 80% stenosis with no significant residual. MAY flow was 3 throughout the procedure. Integrilin was used during the case. Sheath was closed with ExoSeal device. TRANSINT:[id number] Voice Confirmation ID: [id number] DOCUMENT ID: [id number] ANYI LIU MD at 1226 CC: [id number] DICTATION DATE: 01/31/19 1449 OFFSET PRINTER: 01/31/19 1511 DEP CLI 01/31/19 [place] [id number]
== END 2019-01-31 19:00 | disposition home or self-care (01) ==
LOC: D.CATH 11:08
PROVIDERS: ATTEND Internal Medicine Interventional Cardiology
DX: I25.119 Atherosclerotic heart disease of native coronary artery with unspecified angina pectoris (principal); Z95.5 Presence of coronary angioplasty implant and graft; Z01.812 Encounter for preprocedural laboratory examination

== ENCOUNTER 2019-05-16 13:31 | Outpatient (CLI) | payer MEDICARE, BC ==
[~2019-05-16] VITALS: Ht 154.9 cm; Wt 54.5 kg
[~2019-05-16 13:31] MED LIST changes: +ATARAX 25 MG TA25 MG PO; +STERAPRED DS 1010 MG PO
[2019-05-16 14:19] VITALS: Ht 154.9 cm; Wt 54.5 kg
== END 2019-05-16 14:31 | disposition home or self-care (01) ==
LOC: D.OPS 13:31
PROVIDERS: ATTEND Emergency Medicine
DX: M81.0 Age-related osteoporosis without current pathological fracture (principal)

== ENCOUNTER → 2020-01-28 13:47 | Outpatient (CLI) | payer MEDICARE, BC ==
--- NOTE | 2020-01-30 14:16 | EC ---
PATIENT:ONEYDA GATES DATE OF SERVICE: 01/28/20 SEX: F MEDICAL RECORD: [id number] DATE OF : 54 LOCATION:D.[facility] AGE OF PATIENT: 69 ADMISSION DATE: 01/28/20 REFERRING PHYSICIAN: INTERPRETING PHYSICIAN: ANYI LIU MD ECHOCARDIOGRAM REPORT ECHO CHARGES 4 ECHO COMPLETE Date: 01/28/20 CLINICAL DIAGNOSIS: CAD HX AFIB HTN/MR/TR ECHOCARDIOGRAPHIC MEASUREMENTS (adult normal given) AC root (d.<3.7cm) 2.8 cm LV Septum d (<1.2 cm> 1.2 cm Valve Excursion 1.6 cm LV Septum (systole) 1.4 cm Left Atria (s.<4.0cm> 3.6 cm LVPW d(<1.2cm) 1.5 cm RV (d.<2.3cm) 3.3 cm LVPW (sytole) 1.7 cm LV diastole(<5.6CM) 4.4 cm MV E-F(>70mm/sec) cm LV systole 3.0 cm LVOT Diameter 1.8 cm MV exc.(>10mm) 1.4 cm Est.ejection fraction (50-75%) % DOPPLER: LVIT cm/sec A 60.0 cm/sec E 71.0 cm/sec LA cm/sec RVSP 22 mmHg LVOT 86 cm/sec AOP1/2T m/s Asc. Ao 141 cm/sec RVOT 73 cm/sec RA cm/sec PA 92 cm/sec AV Gradient Peak 7.90 mmHg AV Mean 3.75 mmHg AV Area 1.7 cm MV Gradient Peak 3.46 mmHg MV Mean 0.69 mmHg MV Area cm COMMENTS: Processing Analyst: 2 NISH CARTER In Store Banker: 3 Dr. Brooks TAPE# PACS Pericardial Effusion N DATE OF SERVICE: Adequate 2D, color flow imaging, spectral Doppler, and M-Mode. Borderline LVH. LV internal dimension is normal. Wall motion is normal. EF is greater than or equal to 55%. Aortic valve is tricuspid. No evidence of stenosis by Doppler interrogation. Left atrium is normal at 3.6 cm. Mitral valve shows no prolapse. Trace MR. Right-sided chambers are grossly normal. Mild TR. ECHOCARDIOGRAM REPORT [id number] ONEYDA GATES ANN TRANSINT:[id number] Voice Confirmation ID: [id number] DOCUMENT ID: [id number] ANYI LIU MD at 1416 CC: [id number] DICTATION DATE: 01/29/20841 SIGN PAINTER HELPER: 01/29/20914 DEP CLI 01/28/20 [facility] [address] [place] [id number]
== END | disposition home or self-care (01) ==
LOC: D.HCCECHO 13:47
PROVIDERS: ATTEND Internal Medicine Interventional Cardiology
DX: I25.10 Atherosclerotic heart disease of native coronary artery without angina pectoris (principal)